=== PATIENT | female | born 1980 | race African-American/Black ===

== ENCOUNTER 2017-08-19 17:11 | Emergency (ER) | payer MEDICAID, OTHER ==
[~2017-08-19] VITALS: Ht 167.6 cm; Wt 60.0 kg
[2017-08-19 17:15] VITALS: BP 115/65; PULSE 128; RESP 24; TEMP 100.1; O2SAT 99
[2017-08-19 19:00] LABS: AUTOMATED NEUTROPHIL # 10.5 TH/MM3 (1.8-7.7); BASOPHIL % 0.2 % (0.0-2.0); EOSINOPHIL % 0.2 % (0.0-4.0); HEMOGLOBIN 12.9 GM/DL (11.6-15.3); LYMPH % 7.8 % (9.0-44.0); MEAN CELL VOLUME 83.5 FL (80.0-100.0); MEAN CORPUSCULAR HGB CONC 34.8 % (32.0-36.0); MEAN PLATELET VOLUME 9.3 FL (7.0-11.0); MONO % 7.6 % (0.0-8.0); NEUT % 84.2 % (16.0-70.0); PLATELET COUNT 236 TH/MM3 (150-450); RED BLOOD COUNT 4.44 MIL/MM3 (4.00-5.30); RED CELL DISTRIBUTION WIDTH 14.1 % (11.6-17.2); WHITE BLOOD COUNT 12.5 TH/MM3 (4.0-11.0)
[2017-08-19 19:03] LABS: ALBUMIN 3.5 GM/DL (3.4-5.0); AST (GOT) 58 U/L (15-37); BICARBONATE 25.7 MEQ/L (21.0-32.0); BLOOD UREA NITROGEN 10 MG/DL (7-18); CALCIUM 9.6 MG/DL (8.5-10.1); CHLORIDE 102 MEQ/L (98-107); CREATININE 0.98 MG/DL (0.50-1.00); GLOMERULAR FILTRATION RATE 78 ML/MIN (>89); GLUCOSE,RANDOM 135 MG/DL (74-106); SODIUM (NA) 134 MEQ/L (136-145)
[2017-08-19 19:04] LABS: ALT (GPT) 57 U/L (10-53)
[2017-08-19 19:05] LABS: ALKALINE PHOSPHATASE 119 U/L (45-117); TOTAL BILIRUBIN ADULT 0.3 MG/DL (0.2-1.0)
[2017-08-19 19:19] LABS: BACTERIA, URINE RARE /hpf; BILIRUBIN, URINE NEG (NEG); BLOOD, URINE MOD (NEG); GLUCOSE,URINE NEG (NEG); KETONE, URINE 40 mg/dL (NEG); MUCUS URINE MANY /lpf (OCC); NITRITE,URINE NEG (NEG); PH, URINE 5.5 (5.0-8.5); SQUAMOUS EPITHELIAL CELL URINE 3 /hpf (0-5); URINE COLOR YELLOW (YELLW/STRAW); URINE LEUKOCYTE ESTERASE TRACE (NEG)
[2017-08-19] MEDS ORDERED: SODIUM CHLOR 0.9% 1000 ML INJ 1,000 ML IV SCH (20:03)
--- NOTE | 2017-08-19 20:07 | PD ---
HPI Chief Complaint: Abdominal Pain Time Seen by Provider: 19:58 Travel History International Travel<30 days: No Contact w/Intl Traveler<30days: No Traveled to known affect area: No History of Present Illness HPI This is a 37-year-old female who presents for evaluation. For 4-5 days she has had fevers, chills, myalgias, nausea, vomiting, abdominal pain, cough. The cough is dry, occasionally productive yellow sputum. She denies sore throat, vaginal bleeding or discharge, dysuria. She does report increased urinary frequency. Symptoms are moderate, no aggravating or relieving factors. She has no other complaints at this time. PFSH Past Medical History ?: Not LMP: 07/26/17 Social History Alcohol Use: Yes Tobacco Use: Yes Allergies-Medications (Allergen,Severity, Reaction): Coded Allergies: No Known Allergies (Verified Allergy, Unknown, 04/10/03) Reported Meds & Prescriptions Reported Meds & Active Scripts Active Zofran (Ondansetron HCl) 4 Mg Tab 4 Mg PO Q6HR PRN Bactrim DS (Sulfamethoxazole-Trimethoprim) 800-160 Mg Tab 1 Tab PO BID Review of Systems Except as stated in HPI: all other systems reviewed are Neg Physical Exam Narrative GENERAL: Well-developed well-nourished female no acute distress. Noted to be tachycardic with low-grade fever. SKIN: Warm and dry. HEAD: Atraumatic. Normocephalic. EYES: Pupils equal and round. No scleral icterus. No injection or drainage. ENT: No nasal bleeding or discharge. Mucous membranes pink and moist. NECK: Trachea midline. No JVD. CARDIOVASCULAR: Regular rate and rhythm. No murmur appreciated. RESPIRATORY: No accessory muscle use. Clear to auscultation. Breath sounds equal bilaterally. GASTROINTESTINAL: Abdomen soft, generalized tenderness to palpation without guarding. Right CVA tenderness is present. MUSCULOSKELETAL: No obvious deformities. No clubbing. No cyanosis. No edema. NEUROLOGICAL: Awake and alert. No obvious cranial nerve deficits. Motor grossly within normal limits. Normal speech. PSYCHIATRIC: Appropriate mood and affect; insight and judgment normal. Data Data Last Documented VS Vital Signs Date Time Temp Pulse Resp B/P (MAP) Pulse Ox O2 Delivery O2 Flow Rate FiO2 08/19/17 20:26 96 08/19/17 20:17 97 18 117/64 (81) Room Air 08/19/17 17:15 100.1 Orders Orders Complete Blood Count With Diff (08/19/17 17:29) Comprehensive Metabolic Panel (08/19/17 17:29) Urinalysis - C+S If Indicated (08/19/17 17:29) Ed Urine Pregnancytest Poc (08/19/17 17:29) Iv Access Insert/Monitor (08/19/17 17:29) Oxygen Administration (08/19/17:) Oximetry (08/19/17 17:29) Lipase (08/19/17 17:29) Urine Culture (08/19/17 18:15) Lactic Acid Sepsis Protocol (08/19/17 20:03) Influenzae A/B Antigen (08/19/17 20:03) Blood Culture (08/19/17 20:03) Ondansetron Inj (Zofran Inj) (08/19/17 20:15) Sodium Chlor 0.9% 1000 Ml Inj (Ns 1000 M (08/19/17 20:03) Acetaminophen (Tylenol) (08/19/17 20:15) Ct Abd/Pel W Iv Contrast(Rout) (08/19/17 20:07) Ceftriaxone Inj (Rocephin Inj) (08/19/17 20:15) Iohexol 350 Inj (Omnipaque 350 Inj) (08/19/17 21:07) Ed Discharge Order (08/19/17 21:56) Labs Laboratory Tests Test 08/19/17 18:14 08/19/17 18:15 08/19/17 20:20 White Blood Count 12.5 TH/MM3 Red Blood Count 4.44 MIL/MM3 Hemoglobin 12.9 GM/DL Hematocrit 37.0 % Mean Corpuscular Volume 83.5 FL Mean Corpuscular Hemoglobin 29.0 PG Mean Corpuscular Hemoglobin Concent 34.8 % Red Cell Distribution Width 14.1 % Platelet Count 236 TH/MM3 Mean Platelet Volume 9.3 FL Neutrophils (%) (Auto) 84.2 % Lymphocytes (%) (Auto) 7.8 % Monocytes (%) (Auto) 7.6 % Eosinophils (%) (Auto) 0.2 % Basophils (%) (Auto) 0.2 % Neutrophils # (Auto) 10.5 TH/MM3 Lymphocytes # (Auto) 1.0 TH/MM3 Monocytes # (Auto) 1.0 TH/MM3 Eosinophils # (Auto) 0.0 TH/MM3 Basophils # (Auto) 0.0 TH/MM3 CBC Comment DIFF FINAL Differential Comment Blood Urea Nitrogen 10 MG/DL Creatinine 0.98 MG/DL Random Glucose 135 MG/DL Total Protein 9.0 GM/DL Albumin 3.5 GM/DL Calcium Level 9.6 MG/DL Alkaline Phosphatase 119 U/L Aspartate Amino Transf (AST/SGOT) 58 U/L Alanine Aminotransferase (ALT/SGPT) 57 U/L Total Bilirubin 0.3 MG/DL Sodium Level 134 MEQ/L Potassium Level 4.1 MEQ/L Chloride Level 102 MEQ/L Carbon Dioxide Level 25.7 MEQ/L Anion Gap 6 MEQ/L Estimat Glomerular Filtration Rate 78 ML/MIN Lipase 58 U/L Urine Color YELLOW Urine Turbidity HAZY Urine pH 5.5 Urine Specific [place] 1.033 Urine Protein 100 mg/dL Urine Glucose (UA) NEG mg/dL Urine Ketones 40 mg/dL Urine Occult Blood MOD Urine Nitrite NEG Urine Bilirubin NEG Urine Urobilinogen 2.0 MG/DL Urine Leukocyte Esterase TRACE Urine RBC 6 /hpf Urine WBC 25 /hpf Urine Squamous Epithelial Cells 3 /hpf Urine Bacteria RARE /hpf Urine Mucus MANY /lpf Microscopic Urinalysis Comment CULTURE INDICATED Lactic Acid Level 1.4 mmol/L MDM Medical Decision Making Medical Screen Exam Complete: Yes Emergency Medical Condition: Yes Medical Record Reviewed: Yes Differential Diagnosis Pyelonephritis, pneumonia, gastroenteritis, dehydration, obstruction, appendicitis, cholecystitis, colitis, influenza Narrative Course The patient was placed on ECG monitoring pulse oximetry. Lab work, urinalysis, CT abdomen and pelvis, Influenza antigen pending. The patient was given IV fluids, Zofran, as well as oral Tylenol. CT abdomen and pelvis reveals CONCLUSION: 1. Abnormal appearance to the right kidney with multiple wedge-shaped areas of decreased parenchymal enhancement, but no discrete masses. No evidence of hydronephrosis. Differential considerations include pyelonephritis, septic emboli, and multiple areas of vascular insufficiency. 2. Mild amount of free fluid in the pelvis. WBC count 12.5. Urinalysis consistent with pyelonephritis. The patient was treated with IV fluids, Rocephin, Zofran, Tylenol she feels improved, she is able to tolerate oral hydration. She would prefer to attempt outpatient treatment. This seems reasonable as she is young and otherwise healthy. She understands return for any acutely new or worsening symptoms. She is stable for discharge. Diagnosis Primary Impression: Pyelonephritis Additional Instructions: Medication as prescribed. Stay well-hydrated and well-nourished, slowly advance diet as tolerated. Follow-up close with primary care physician and return for any acutely new or worsening symptoms. Med/Other Pt SpecificInfo: Prescription(s) given Scripts Ondansetron (Zofran) 4 Mg Tab 4 MG PO Q6HR Y for NAUSEA OR VOMITING, #20 TAB 0 Refills Prov: Obi Loredo MD 08/19/17 Sulfamethoxazole-Trimethoprim (Bactrim DS) 800-160 Mg Tab 1 TAB PO BID for Infection, #20 TAB 0 Refills Prov: Obi Loredo MD 08/19/17 Disposition: 01 DISCHARGE HOME Condition: Stable Isaias Wei Aug 19, 2017 20:07
[2017-08-19] MEDS ORDERED: ACETAMINOPHEN 325 MG TAB PO ONE (20:15)
[2017-08-19] MEDS ORDERED: cefTRIAXone INJ 1,000 MG in SODIUM CHLORIDE 0.9% INJ 100 ML IV ONE (20:15)
[2017-08-19] MEDS ORDERED: ONDANSETRON HCL 4 MG/2 ML VIAL IVP ONE (20:15)
[2017-08-19 20:17] VITALS: BP 117/64; PULSE 97; RESP 18; O2SAT 96
[2017-08-19] MEDS ORDERED: IOHEXOL 350 MG/ML 10 ML VIAL (for RAD DIAG) IVCONTRAST ONE (21:07)
--- NOTE | 2017-08-19 21:44 | RADRPT ---
EXAM DATE/TIME: 08/19/2017 21:04 [facility] COMPARISON: No previous studies available for comparison. INDICATIONS : Right side abdominal pain with nausea, vomiting, and constipation. IV CONTRAST: 100 cc Omnipaque 350 (iohexol) IV ORAL CONTRAST: No oral contrast ingested. RADIATION DOSE: 4.53 CTDIvol (mGy) MEDICAL HISTORY : None SURGICAL HISTORY : Tubal ligation. ENCOUNTER: Initial ACUITY: 1 day PAIN SCALE: 7/10 LOCATION: Right abdomen TECHNIQUE: Volumetric scanning of the abdomen and pelvis was performed. Using automated exposure control and ad justment of the mA and/or kV according to patient size, radiation dose was kept as low as reasonably achievable to obtain optimal diagnostic quality images. DICOM format image data is available electro nically for review and comparison. FINDINGS: LOWER LUNGS: The visualized lower lungs are clear. LIVER: Homogeneous density without lesion. There is no dilation of the biliary tree. No calcified gallston es. SPLEEN: Normal size without lesion. PANCREAS: Within normal limits. KIDNEYS: Symmetric renal size. There is homogeneous parenchymal opacification in the left kidney. In the rig ht kidney, there are multiple focal areas of decreased opacification which are partially wedge-shaped and involves upper, mid, and lower pole cortex. No evidence of hydronephrosis. No discrete masses seen. No perinephric fluid. ADRENAL GLANDS: Within normal limits. VASCULAR: There is no aortic aneurysm. BOWEL/MESENTERY: No dilated loops of small or large bowel. ABDOMINAL WALL: Within normal limits. RETROPERITONEUM: There is no lymphadenopathy. BLADDER: No wall thickening or mass. REPRODUCTIVE: Anteverted uterus. No free fluid in the dependent pelvis measuring up to 1.8 cm. INGUINAL: There is no lymphadenopathy or hernia. MUSCULOSKELETAL: Within normal limits for patient age. CONCLUSION: 1. Abnormal appearance to the right kidney with multiple wedge-shaped areas of decreased parenchymal enhancement, but no discrete masses. No evidence of hydronephrosis. Differential considerations inc lude pyelonephritis, septic emboli, and multiple areas of vascular insufficiency. 2. Mild amount of free fluid in the pelvis. Michael Regalado MD on August 19, 2017 at 21:33 Board Certified Radiologist. This report was verified electronically.
[2017-08-19] MEDS ORDERED: BACT800T5 PO (21:57)
[2017-08-19] MEDS ORDERED: ZOFR4TAB PO (21:57)
== END 2017-08-19 22:46 | disposition home or self-care (01) ==
LOC: NEPD 17:11
DX: N12 Tubulo-interstitial nephritis, not specified as acute or chronic (principal); B96.20 Unspecified Escherichia coli [E. coli] as the cause of diseases classified elsewhere; R11.2 Nausea with vomiting, unspecified; R05 Cough; M79.1 Myalgia; Z72.0 Tobacco use
CPT/HCPCS: 74177; 80053; 81001; 83605; 83690; 84703; 85025; 87040; 87077; 87086; 87186; 87804; 96374; 96375; 99284; J0696; J2405; J7030; Q9967